=== PATIENT | female | born 1970 | race African-American/Black ===

== ENCOUNTER 2024-11-29 21:24 | Emergency (ER) | payer MEDICAID ==
[~2024-11-29] VITALS: Ht 165.1 cm; Wt 86.3 kg
[2024-11-29 21:42] VITALS: BP 204/101; PULSE 85; RESP 16; TEMP 37.2; O2SAT 99
[2024-11-30] MEDS ORDERED: IBUP-2028 MT (02:08)
== END 2024-11-30 03:48 | disposition home or self-care (01) ==
LOC: ER 21:24
DX: M79.641 Pain in right hand (principal); M25.531 Pain in right wrist; E11.9 Type 2 diabetes mellitus without complications; I10 Essential (primary) hypertension
CPT/HCPCS: 73110; 73120; 99284

== ENCOUNTER 2025-01-03 19:59 | Emergency (ER) | payer MEDICAID ==
[~2025-01-03] VITALS: Ht 165.1 cm; Wt 84.0 kg
[~2025-01-03 19:59] MED LIST: IBUP-2028 MT
[2025-01-03 20:23] VITALS: O2SAT 99
[2025-01-03 20:40] VITALS: BP 194/98; PULSE 102; RESP 18; TEMP 36.9; O2SAT 100
[2025-01-03 23:42] VITALS: TEMP 98.4
[2025-01-03] MEDS: ACETAMINOPHEN 325MG TABLET PO ONE (23:42)
[2025-01-04] MEDS ORDERED: NAPR-1176 MT (01:16)
== END 2025-01-04 01:34 | disposition home or self-care (01) ==
LOC: ER 19:59
DX: N63.11 Unspecified lump in the right breast, upper outer quadrant (principal); M19.90 Unspecified osteoarthritis, unspecified site; I10 Essential (primary) hypertension; E11.9 Type 2 diabetes mellitus without complications; Z79.1 Long term (current) use of non-steroidal anti-inflammatories (NSAID); Z79.899 Other long term (current) drug therapy
CPT/HCPCS: 76641; 99284